=== PATIENT | male | born 1975 ===

== ENCOUNTER 2023-05-10 04:06 | Day surgery (SDC) | payer OTHER ==
[2023-05-07 17:42] VITALS: BMI 25.0
[2023-05-10] MEDS ORDERED: TRIAMCINOLONE ACET 40MG/1ML VIAL ONE (12:34)
[2023-05-10] MEDS ORDERED: LIDOCAINE 1% P/F 10 MG/ML VIAL INF ONE (12:48)
[2023-05-10] MEDS ORDERED: BUPIVACAINE HCL 0.25% 125 MG/50 ML VIAL NR ONE (12:48)
[2023-05-10] MEDS ORDERED: TRIAMCINOLONE ACET 40MG/1ML VIAL IM ONE (12:48)
[2023-05-10] MEDS ORDERED: IOHEXOL 180 MG/1 ML ML IJ ONE (12:48)
[2023-05-10 13:10] VITALS: BP 110/63; PULSE 52; RESP 16; TEMP 98.5
== END 2023-05-10 13:12 | disposition home or self-care (01) ==
LOC: JASU-SURG 04:06
PROVIDERS: ATTEND Physical Medicine & Rehabilitation
PROC: 3E0U3BZ Introduction of Anesthetic Agent into Joints, Percutaneous Approach (ICD-10-PCS; 2023-05-10)
PROC: 3E0U33Z Introduction of Anti-inflammatory into Joints, Percutaneous Approach (ICD-10-PCS; principal; 2023-05-10 13:30)
DX: M16.12 Unilateral primary osteoarthritis, left hip (principal); M25.552 Pain in left hip
CPT/HCPCS: 76000-TC-FY